=== PATIENT | female | born 1955 | race Two or more races ===

== ENCOUNTER 2021-02-17 11:00 | Inpatient (IN) | payer OTHER ==
[~2021-02-17] VITALS: Ht 154.9 cm; Wt 83.5 kg
[2021-02-17] MEDS ORDERED: COZAAR100 MG PO (13:06)
== END 2021-02-24 11:56 | disposition home or self-care (01) | DRG 741 ==
LOC: OB/GYN 02-23 05:30 → O/R 02-23 05:30 → OB/GYN 02-23 07:15
PROVIDERS: ADMIT Obstetrics & Gynecology Gynecologic Oncology; ATTEND Obstetrics & Gynecology Gynecologic Oncology
PROC: 0UT24ZZ Resection of Bilateral Ovaries, Percutaneous Endoscopic Approach (ICD-10-PCS; 2021-02-23)
PROC: 0UT74ZZ Resection of Bilateral Fallopian Tubes, Percutaneous Endoscopic Approach (ICD-10-PCS; 2021-02-23)
PROC: 07BC4ZZ Excision of Pelvis Lymphatic, Percutaneous Endoscopic Approach (ICD-10-PCS; 2021-02-23)
PROC: 0UT94ZZ Resection of Uterus, Percutaneous Endoscopic Approach (ICD-10-PCS; principal; 2021-02-23 07:15)
DX: C54.1 Malignant neoplasm of endometrium (principal); D25.2 Subserosal leiomyoma of uterus; N80.1 Endometriosis of ovary; N83.8 Other noninflammatory disorders of ovary, fallopian tube and broad ligament; I10 Essential (primary) hypertension